=== PATIENT | female | born 1995 | race Caucasian/White ===

== ENCOUNTER 2025-04-07 14:11 | Emergency (ER) | payer SELFPAY ==
[2025-04-07 14:24] VITALS: BP 178/73; PULSE 103; TEMP 36.7; O2SAT 97; BMI 40.3
--- NOTE | 2025-04-07 14:40 | XR_ITS ---
WS: [id number] Right hand, 3 views, 04/07/2025 Clinical Data: injury Comparison: None. Findings: No fractures or dislocations are seen. The soft tissues are unremarkable. The joint spaces are normal XR/XR hand RT min 3V* [id number] Impression: Negative right hand.
--- NOTE | 2025-04-07 14:53 | W.ED.ANIMALB ---
HPI - Animal Bite General: Chief Complaint: Animal Bite Stated Complaint: right leg dog bite Time Seen by Provider: 04/07/25 14:20 Source: patient Mode of arrival: ambulatory Limitations: no limitations History of Present Illness: 30-year-old female states that she had got bit by a dog just prior to arrival. She is bit right hand has a small abrasion to the base right thumb with some hand pain also been bit in the right lower leg with 2 lacerations. She rates her pain a 6 out of 10 currently patient does not believe the dogs were vaccinated. Related Data Previous Rx's ?Medication ?Instructions ?Recorded amoxicillin 500 mg-potassium 1 tab PO BID #14 tabs 04/07/25 clavulanate 125 mg tablet (Augmentin) hydrocodone 5 mg-acetaminophen 325 1 tab PO Q8H PRN pain #14 tabs 04/07/25 mg tablet Allergies Allergy/AdvReac Type Severity Reaction Status Date / Time No Known Allergies Allergy Verified 04/07/25 14:32 Physical Exam Const: COMMON NORMALS: no acute distress, patient oriented x3 and healthy appearing HENMT: COMMON NORMALS: normocephalic and atraumatic HEAD & SCALP: normocephalic and atraumatic Neck/C-Spine: COMMON NORMALS: full ROM and supple Chest: COMMONS NORMALS: normal inspection of the chest Resp: COMMON NORMALS: normal respiratory effort Cardio: COMMON NORMALS: regular rate RATE: regular rate Extremity: COMMON NORMALS: full ROM Neuro: COMMON NORMALS: patient oriented x3, moves all extremities and no focal motor deficits Psych: COMMON NORMALS: mental status grossly normal, Normal thought process present and cooperative THOUGHT PROCESS: Normal thought process present Skin: COMMON NORMALS: no rashes or lesions noted NARRATIVE SKIN EXAM: Abrasion puncture wound noted to base of right thumb no large laceration does have 2 bite zimmerman to right lower calf both roughly 3 cm GENERAL SKIN EXAM: no rashes or lesions noted Procedures Laceration Laceration 1: Site: lower extremity Side (If applicable): right Size (cm): 3 Description: linear Depth: simple, single layer Local Anesthetic: lidocaine 1% Amount of anesthesia used (mL): 8 Pre-repair: wound explored and irrigated extensively Skin layer closed with: nylon Size (cm): 4-0 Number of sutures: 1 Technique: simple, interrupted Laceration 2: Site: lower extremity Side (If applicable): right Size (cm): 2.5 Depth: simple, single layer Local Anesthetic: lidocaine 1% Amount of anesthesia used (mL): 3 Pre-repair: wound explored, irrigated extensively and deep structures intact Skin layer closed with: nylon Size (cm): 4-0 Number of sutures: 1 Technique: simple, interrupted Course Vital Signs: Vital signs: Vital Signs Temperature 98.0 F 04/07/25 14:24 Pulse Rate 103 H 04/07/25 14:24 Blood Pressure 178/73 04/07/25 14:24 Pulse Oximetry 97 04/07/25 14:24 Oxygen Delivery Me thod Room Air 04/07/25 14:24 MDM - Animal Bite Medical Decision Making 30-year-old female presents here after dog bite to right hand and right lower leg x-ray right hand shows no fractures has small abrasion the right hand does not require any sutures did have 2 large lacerations to her lower leg that was closed loosely with [address] her on hydrocodone along with Augmentin did give her tetanus and rabies series here she is to have sutures removed in 2 weeks return if any signs of infection she understands agrees to plan. Medical Records I reviewed the patient's medical records. Lab Data Radiology Impressions Hand X-Ray 04/07/25 14:40 Impression: Negative right hand. All radiology interpretation(s) finalized by discharge Discharge Plan Discharge Patient Disposition: Home Clinical Impression: Dog bite Condition: Stable Prescriptions: New hydrocodone-acetaminophen 5-325 mg tablet 1 tab PO Q8H PRN (Reason: pain) Qty: 14 0RF amoxicillin-pot clavulanate [Augmentin] 500-125 mg tablet 1 tab PO BID Qty: 14 0RF Discharge Orders: Discharge ED (Routine); Ordered 04/07/25 Ordered By: Vishal Gaming Discharge Diet: Advance as tolerated Discharge Activity: Resume usual activity Patient Instructions: Animal Bite (ED) Activity Restrictions/Additional Instructions: suture removal in 14 days Print Language: Greenlandic 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
[2025-04-07] MEDS: rabies IG 300 unit/mL SDV 1 mL 2280 UNIT IM (15:14)
[2025-04-07] MEDS: rabies vaccine 2.5 unit SDV IM (15:15)
[2025-04-07] MEDS: HYDROcodone-acetaminophen 7.5-325 mg Tablet 1 TAB PO (15:15)
[2025-04-07] MEDS: tetanus-dipt-pertussis 0.5 mL SDV IM (15:16)
== END 2025-04-07 15:40 | disposition home or self-care (01) ==
PROVIDERS: Emergency Provider Emergency Medicine
DX: S60.511A Abrasion of right hand, initial encounter (principal); S81.811A Laceration without foreign body, right lower leg, initial encounter; W54.0XXA Bitten by dog, initial encounter; Z20.3 Contact with and (suspected) exposure to rabies; Z29.14 Encounter for prophylactic rabies immune globulin
CPT/HCPCS: 12002; 73130; 90375; 90471; 90675; 90715; 96372; 99283; J9999

== ENCOUNTER 2025-04-09 11:08 | Oncology outpatient (recurring) (ONCR) | payer SELFPAY ==
[2025-04-09] MEDS: rabies vaccine 2.5 unit SDV IM (11:28)
[2025-04-09 11:58] VITALS: BP 164/122; PULSE 98; RESP 18; TEMP 36.9; O2SAT 96
== END 2025-04-09 23:59 | disposition home or self-care (01) ==
PROVIDERS: Visit Provider Emergency Medicine
DX: Z23 Encounter for immunization (principal); Z20.3 Contact with and (suspected) exposure to rabies; W54.0XXD Bitten by dog, subsequent encounter
CPT/HCPCS: 90471; 90675

== ENCOUNTER 2025-04-09 11:56 | Emergency (ER) | payer SELFPAY ==
[2025-04-09 12:01] VITALS: BP 196/152; PULSE 78; RESP 16; TEMP 36.3; O2SAT 96; BMI 38.7
--- NOTE | 2025-04-09 12:17 | ED_ITS ---
HPI - General Adult 2 General: Chief complaint: General Medical Stated complaint: high bp Time Seen by Provider: 04/09/25 12:11 Source: patient Mode of arrival: ambulatory Limitations: no limitations History of Present Illness: 30-year-old female who sent over from [facility] for hypertension she was over there getting her second rabies vaccine. She is asymptomatic denies any chest pain or headaches had some mild dizziness patient when she was seen here initial dog bite had hypertension as well. States she does not take her blood pressure at home so does not know if she had a history of hypertension or not but has never been diagnosed with it but does not have a PCP either. Related Data Previous Rx's ?Medication ?Instructions ?Recorded amoxicillin 500 mg-potassium 1 tab PO BID #14 tabs clavulanate 125 mg tablet (Augmentin) hydrocodone 5 mg-acetaminophen 325 1 tab PO Q8H PRN pa in #14 tabs 04/07/25 mg tablet amlodipine 10 mg tablet (Norvasc) 10 mg PO DAILY #30 t abs 04/09/25 Allergies Allergy/AdvReac Type Severity Reaction Status Date / Time No Known Allergies Allergy Verified 04/09/25 12:06 Physical Exam 2 Const: COMMON NORMALS: no acute distress, patient oriented x3 and healthy appearing HENMT: COMMON NORMALS: normocephalic and atraumatic HEAD & SCALP: n ormocephalic and atraumatic Eye: COMMON NORMALS: Equal, round and reactive pupils present and EOMs intact bilaterally PUPIL: Yes Equal, round and reactive pupils present Neck/C-Spine: COMMON NORMALS: full ROM and supple Chest: COMMONS NORMALS: normal inspection of the chest Resp: COMMON NORMALS: normal respiratory effort, No retractions, No use of accessory muscles and clear to auscultation bilaterally AUSCULTATION: clear to auscultation bilaterally Cardio: COMMON NORMALS: regular rate, regular rhythm and No murmurs present (Cardio) RATE: regular rate RHYTHM: regular rhythm Extremity: COMMON NORMALS: full ROM Neuro: COMMON NORMALS: patient oriented x3, moves all extremities and no focal motor deficits Psych: COMMON NORMALS: mental status grossly normal, Normal thought process present and cooperative THOUGHT PROCESS: Normal thought process present Skin: NARRATIVE SKIN EXAM: Dog bite to right lower leg 2 open with sutures in place are well-appearing here no signs of infection Course 2 Vital Signs: Vital signs: Vital Signs Temperature 97.4 F L 04/09/25 12:01 Pulse Rate 78 04/09/25 12:01 Respiratory Rate 16 04/09/25 12:01 Blood Pressure 196/152 04/09/25 12:01 Pulse Oximetry 96 04/09/25 12:01 Oxygen Delivery Me thod Room Air 04/09/25 12:01 MDM - General Adult Medical Decision Making Patient presents here with hypertension she is asymptomatic here she has been hypertensive here did give her IV meds her blood work showed no significant abnormality we will start her on Norvasc she is to follow-up with PCP and return if worsening she understands agrees to plan EKG interpreted by me at 1209 normal sinus rhythm heart rate [address] elevation QRS 84 QTc 416 Medical Records I reviewed the patient's medical records. Lab Data I reviewed the patient's lab results. 04/09/25 12:19 04/09/25 12:19 Laboratory Results WBC 8.98 10^3/uL (3.29-11.43) 04/09/25 12:19 RBC 4.84 10^6/uL (3.85-5.65) 04/09/25 12:19 Hgb 14.80 g/dL (11.27-16.99) 04/09/25 12:19 Hct 44.9 % (36-47) 04/09/25 12:19 MCV 92.8 fl (85-98) 04/09/25 12:19 MCH 30.6 pg (27-33) 04/09/25 12:19 MCHC 33.0 g/dL (30-55) 04/09/25 12:19 RDW 12.8 % (12.1-15.1) 04/09/25 12:19 Plt Count 233 10^3/cmm (157-399) 04/09/25 12:19 MPV 10.2 fL (7.4-10.4) 04/09/25 12:19 Neut % (Auto) 67.9 % 04/09/25 12:19 Lymph % (Auto) 23.9 % 04/09/25 12:19 [place] % (Auto) 6.9 % 04/09/25 12:19 Eos % (Auto) 0.8 % 04/09/25 12:19 Baso % (Auto) 0.2 % 04/09/25 12:19 Neut # (Auto) 6.09 10^3/uL (1.8-7.7) 04/09/25 12:19 Lymph # (Auto) 2.2 10^3/uL (0.8-4.8) 04/09/25 12:19 [place] # (Auto) 0.6 10^3/uL (0.2-0.9) 04/09/25 12:19 Eos # (Auto) 0.1 10^3/uL (0.0-0.8) 04/09/25 12:19 Baso # (Auto) 0.0 10^3/uL (0.0-0.1) 04/09/25 12:19 Nucleated RBC % (auto) 0 % 04/09/25 12:19 Nucleated RBCs # 0.0 /100WBC 04/09/25 12:19 Sodium 136 mmol/L (136-145) 04/09/25 12:19 Potassium 3.9 mmol/L (3.5-5.1) 04/09/25 12:19 Chloride 99 mmol/L (98-107) 04/09/25 12:19 Carbon Dioxide 25 mmol/L (22-29) 04/09/25 12:19 Anion Gap 15.9 (5-19) 04/09/25 12:19 BUN 7 mg/dL (6-20) 04/09/25 12:19 Creatinine 0.5 mg/dL (0.5-0.9) 04/09/25 12:19 GFR Calculation 143.0 mL/min (90-130) H 04/09/25 12:19 Glucose 94 mg/dL (65-115) 04/09/25 12:19 Calculated Osmolality 280 mOsm/kg (285-295) L 04/09/25 12:19 Calcium 9.2 mg/dL (8.5-10.5) 04/09/25 12:19 Total Bilirubin 0.4 mg/dL (0.15-1.2) 04/09/25 12:19 AST 17 U/L (0-32) 04/09/25 12:19 ALT 23 U/L (0-33) 04/09/25 12:19 Alkaline Phosphatase 96 U/L (35-105) 04/09/25 12:19 Total Protein 7.7 g/dL (6.6-8.7) 04/09/25 12:19 Albumin 4.3 g/dL (3.5-5.2) 04/09/25 12:19 Globulin 3.4 g/dL (1.3-4.6) 04/09/25 12:19 No radiology studies performed this visit Discharge Plan Discharge Patient Disposition: Home Clinical Impression: Hypertension Condition: Stable Prescriptions: New amlodipine [Norvasc] 10 mg tablet 10 mg PO DAILY Qty: 30 0RF No Action hydrocodone-acetaminophen 5-325 mg tablet 1 tab PO Q8H PRN (Reason: pain) Qty: 14 0RF amoxicillin-pot clavulanate [Augmentin] 500-125 mg tablet 1 tab PO BID Qty: 14 0RF Discharge Orders: Discharge ED (Routine); Ordered 04/09/25 Ordered By: Vishal Gaming Discharge Diet: Advance as tolerated Discharge Activity: Resume usual activity Patient Instructions: Hypertension (ED) Print Language: Rwandan Coding Level of Care 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
[2025-04-09 12:24] LABS: Hematocrit 44.9 % (36-47); Hemoglobin 14.80 g/dL (11.27-16.99); Mean Corpuscular HGB Conc 33.0 g/dL (30-55); Mean Corpuscular Hemoglobin 30.6 pg (27-33); Mean Corpuscular Volume 92.8 fl (85-98); Nucleated Red Blood Cells % 0 %; Platelet Count 233 10^3/cmm (157-399); Red Blood Count 4.84 10^6/uL (3.85-5.65); White Blood Count 8.98 10^3/uL (3.29-11.43)
[2025-04-09] MEDS: hyDRALAzine 20 mg/mL INJ 1 mL 10 MG IVP (12:24)
[2025-04-09 12:46] LABS: Alanine Aminotransferase 23 U/L (0-33); Albumin Level 4.3 g/dL (3.5-5.2); Alkaline Phosphatase 96 U/L (35-105); Anion Gap 15.9 (5-19); Aspartate Amino Transferase 17 U/L (0-32); Blood Urea Nitrogen 7 mg/dL (6-20); Calcium 9.2 mg/dL (8.5-10.5); Carbon Dioxide 25 mmol/L (22-29); Chloride 99 mmol/L (98-107); Globulin 3.4 g/dL (1.3-4.6); Glucose 94 mg/dL (65-115); Osmolality Calculated 280 mOsm/kg (285-295); Potassium 3.9 mmol/L (3.5-5.1); Sodium 136 mmol/L (136-145); Total Protein 7.7 g/dL (6.6-8.7)
[2025-04-09 13:15] VITALS: BP 164/109; PULSE 93; O2SAT 98
[2025-04-09 13:33] VITALS: BP 164/109; PULSE 89; O2SAT 99
--- NOTE | 2025-04-09 17:56 | ECG_ITS ---
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 Measurements Intervals [place] Rate: 76 P: 32 WI: 141 QRS: 25 QRSD: 84 T: 63 QT: 386 QTc: 435 Interpretive Statements SINUS RHYTHM No previous ECG available for comparison Electronically Signed On 04-10-2025 17:01:58 INSIDE SALES COORDINATOR by Owen Hernandez M.D. [email or web address]
== END 2025-04-09 13:34 | disposition home or self-care (01) ==
PROVIDERS: Emergency Provider Emergency Medicine
DX: I10 Essential (primary) hypertension (principal)
CPT/HCPCS: 36415; 80053; 85025; 93005; 96374; 99284; J0360